=== PATIENT | female | born 1955 | race Caucasian/White ===

== ENCOUNTER 2019-12-30 11:34 | Outpatient (CLI) | payer MEDICARE, SELFPAY ==
--- NOTE | 2019-12-30 11:50 | XR_ITS ---
WS: [id number] LEFT KNEE: 3 VIEW(S) TECHNIQUE: AP, oblique(s) and lateral. HISTORY: LEFT knee pain. COMPARISON: None available. Curvilinear osseous density adjacent to the medial femoral condyle. Typically seen with avulsion inju ry of the femoral condyle from an MCL injury. Mild narrowing of all 3 compartments. Small osteophytes from the medial tibial plateau and femoral co ndyle. No joint effusion. No soft tissue abnormality. XR/XR knee LT 3V* [id number] IMPRESSION: 1. Mild tricompartment osteoarthritis. 2. Avulsion fracture from the medial femoral condyle. Probably from a prior MC L injury.
== END 2019-12-30 11:35 | disposition home or self-care (01) ==
LOC: RADWPI 11:43
PROVIDERS: PCP Internal Medicine; Visit Provider Nurse Practitioner Family
DX: M25.562 Pain in left knee (principal); M17.12 Unilateral primary osteoarthritis, left knee; S72.432A Displaced fracture of medial condyle of left femur, initial encounter for closed fracture; X58.XXXA Exposure to other specified factors, initial encounter
CPT/HCPCS: 73562

== ENCOUNTER 2020-01-08 06:00 | Outpatient (RCR) | payer MEDICARE, SELFPAY | END 2020-01-25 23:59 | disposition home or self-care (01) | LOC: TPT 06:00 | PROVIDERS: PCP Internal Medicine; Referring Provider Orthopaedic Surgery; Visit Provider Orthopaedic Surgery | DX: M17.12 Unilateral primary osteoarthritis, left knee (principal) | CPT/HCPCS: 97110; 97162 ==

== ENCOUNTER 2020-01-26 06:00 | Outpatient (RCR) | payer MEDICARE, SELFPAY | END 2020-02-24 23:59 | disposition home or self-care (01) | LOC: TPT 06:00 | PROVIDERS: PCP Internal Medicine; Visit Provider Orthopaedic Surgery | DX: M17.12 Unilateral primary osteoarthritis, left knee (principal) | CPT/HCPCS: 97110 ==

== ENCOUNTER 2020-07-14 06:00 | Outpatient (RCR) | payer MEDICARE, SELFPAY | END 2020-07-26 23:59 | disposition home or self-care (01) | LOC: TPT 06:00 | PROVIDERS: PCP Internal Medicine; Referring Provider Nurse Practitioner Family; Visit Provider Nurse Practitioner Family | DX: M17.12 Unilateral primary osteoarthritis, left knee (principal) | CPT/HCPCS: 97161 ==

== ENCOUNTER 2020-07-27 06:00 | Outpatient (RCR) | payer MEDICARE, SELFPAY | END 2020-08-26 23:59 | disposition home or self-care (01) | LOC: TPT 06:00 | PROVIDERS: PCP Internal Medicine; Referring Provider Nurse Practitioner Family; Visit Provider Nurse Practitioner Family | DX: M25.511 Pain in right shoulder (principal) | CPT/HCPCS: 97110 ==

== ENCOUNTER 2020-10-19 19:13 | Emergency (ER) | payer MEDICARE, SELFPAY ==
[2020-10-19 19:19] VITALS: BP 172/99; PULSE 90; RESP 18; TEMP 36.6; O2SAT 97; BMI 34.7
[2020-10-19 19:56] VITALS: BP 191/89; PULSE 74; RESP 16; O2SAT 98
[2020-10-19] MEDS: cloNIDine 0.1 mg Tablet 0.2 MG PO (20:03)
--- NOTE | 2020-10-19 20:05 | CTR_ITS ---
PROCEDURE INFORMATION: Exam: CT Head Without Contrast Exam date and time: 10/19/2020 8:06 PM Age: 65 years old Clinical indication: Dizziness and other: Hypertension; Additional info: Headache TECHNIQUE: Imaging protocol: Computed tomography of the head without contrast. Radiation optimization: All CT scans at this facility use at least one of these dose optimization techniques: automated exposure control; mA and/or kV adjustment per patient size (includes targeted exams where dose is matched to clinical indication); or iterative reconstruction. COMPARISON: No relevant prior studies available. RADIATION DOSE METRICS: Total DLP (mGy-cm): 782.83 FINDINGS: Brain: Normal. No hemorrhage. Unremarkable white matter. No mass effect. Cerebral ventricles: No ventriculomegaly. Bones/joints: Unremarkable. No acute fracture. Paranasal sinuses: Visualized sinuses are unremarkable. No fluid levels. Mastoid air cells: Visualized mastoid air cells are well aerated. Soft tissues: Unremarkable. CT/CT head wo con* [id number] IMPRESSION: No acute intracranial abnormality. Radiation Dose CTDIVOL = (mGy): DLP = 782.83 (mGy-cm)
--- NOTE | 2020-10-19 20:05 | ECG_ITS ---
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
--- NOTE | 2020-10-19 20:09 | ED_ITS ---
HPI - General Adult General: Chief complaint: General Medical Stated complaint: elevated blood pressure Time Seen by Provider: 10/19/20 19:40 History of Present Illness: HPI narrative: The patient is a 65-year-old female with past medical history headaches who comes to the ER complaining of elevated blood pressure and headache and tingling in her scalp. She says she had a headache earlier today and got an adjustment from a DO physician this morning and it relieved her headache. The headache returned and she had tingling and checked her blood pressure at home and it was 140 systolic. When she checked it again it was 170 systolic and she comes to the ER for evaluation. She periodically is on and off of 2-1/2 mg of lisinopril. She has been taking it daily for the past 2 weeks and she says usually when she gets hypertensive that is enough to keep her blood pressure down. Normal blood pressure for her is less than 120 systolic at home so she is worried about the elevation. Onset (ago): hour(s) (6) Location: head Severity: mild Relieving factors: none Exacerbating factors: none Associated symptoms: Reports no associated symptoms and headache(s); Deny chest pain, confusion, dyspnea, rash or palpitations Review of Systems General: Reports: 10 or more systems reviewed and unremarkable except in HPI and below Const: Denies: fatigue Eyes: Denies: change in vision, blurry vision or eye redness ENMT: Denies: throat pain, swelling of lips/tongue, ear or mastoid pain or nasal congestion Card: Denies: chest pain, palpitations, irregular heart rhythm, edema, dyspnea on exertion or orthopnea Resp: Denies: dyspnea, productive cough or non-productive cough GI: Denies: abdominal pain, diarrhea or GI cramping : Denies: flank pain, difficulty voiding, urinary frequency or urinary urgency Musc: Denies: neck pain, back pain, extremity pain, joint pain, joint redness, limited range of motion or muscle weakness Skin/Breast: Denies: rash, pruritus, erythema, skin pain or skin tenderness Neuro: Reports: headache(s); Denies: numbness in extremities, weakness in extremities, sensory changes, difficulty walking, dizziness, confusion or Slurred speech present Psych: Denies: anxiety or depression Endo: Denies: polyuria All/Imm: Denies: urticaria, throat swelling or tongue swelling PFSH ED PFSH: Social History Smoking and tobacco status: never smoked Alcohol intake: never Physical Exam Const: COMMON NORMALS: no acute distress, average body habitus, patient o riented x3, no limitations, healthy appearing, alert and well nourished GENERAL APPEARANCE: cooperative, comfortable, well kempt and well developed ORIENTATION/CONSCIOUSNESS: Yes awake, Yes oriented to person, Yes oriented to place and Yes oriented to time HENMT: COMMON NORMALS: normocephalic, external ears normal and Normal external nose present HEAD & SCALP: normal to inspection and normocephalic NOSE: Normal external nose present EXTERNAL EAR: Yes external ears normal MOUTH: Normal oral and palatal mucosa present THROAT: posterior oropharynx normal Eye: COMMON NORMALS: Equal, round and reactive pupils present and EOMs intact bilaterally GENERAL EYE: appearance normal, both eyes and all related structures PUPIL: Yes Equal, round and reactive pupils present Neck/C-Spine: COMMON NORMALS: full ROM, no lymphadenopathy, no meningeal signs and no JVD GENERAL: Yes normal visual inspection Lymph: LYMPHATIC: no lymphadenopathy noted Chest: COMMONS NORMALS: normal inspection of the chest and normal palpation of entire chest wall Resp: COMMON NORMALS: normal respiratory effort, No retractions, No use of accessory muscles, clear to auscultation bilaterally and percussion normal EFFORT & INSPECTION: Yes able to speak in complete sentences AUSCULTATION: clear to auscultation bilaterally PERCUSSION: percussion normal Cardio: COMMON NORMALS: no JVD, regular rate, regular rhythm, S1 normal heart sound present, S2 normal heart sound present and Peripheral pulses 2+ throughout RATE: regular rate RHYTHM: regular rhythm HEART SOUNDS: S1 normal heart sound present and S2 normal heart sound present PERIPHERAL PULSES: Peripheral pulses 2+ throughout GI: COMMON NORMALS: Normal to inspection, nondistended, normoactive bowel sounds present, Soft to palpation, non-tender and no masses INSPECTION: Yes normal to inspection PALPATION: Yes Soft to palpation : COMMON NORMALS: Yes no CVA tenderness BLADDER/KIDNEY EXAM: Yes no CVA tenderness Back/Pelvis: COMMON NORMALS: no CVA tenderness, thoracic and lumbar spine normal to inspection, no thoracic nor lumbar tenderness and thoraco-lumbar ROM normal Extremity: COMMON NORMALS: normal to inspection, full ROM, capillary refill normal, no joint enlargement and no pedal edema GENERAL: Yes normal exam except as noted Neuro: COMMON NORMALS: patient oriented x3, CN's II-XII intact bilaterally, moves all extremities, no focal motor deficits, no sensory deficits noted and gait normal SENSORIUM/ORIENTATION: Yes alert, Yes oriented to person, Yes oriented to place and Yes oriented to time MENINGEAL SIGNS: Yes no meningeal signs Psych: COMMON NORMALS: mental status grossly normal, Normal thought process present, cooperative, normal affect and speech normal APPEARANCE: Yes well kempt ATTITUDE: Yes calm SPEECH: Yes normal speech THOUGHT PROCESS: Normal thought process present Skin: COMMON NORMALS: no rashes or lesions noted GENERAL SKIN EXAM: no rashes or lesions noted Course Vital Signs: Vital signs: Vital Signs Temperature 97.8 F 10/19/20 19:19 Pulse Rate 74 10/19/20 19:56 Respiratory Rate 16 10/19/20 19:56 Blood Pressure 134/71 10/19/20 21:36 Pulse Oximetry 94 10/19/20 21:36 MDM - General Adult MDM Narrative: Medical decision making narrative: Patient came in with a headache and high blood pressure. Imaging and blood work are normal. She was given 0.2 clonidine which reduced her blood pressure with good effect. At home she has normal blood pressure in the systolic 120s however occasionally it goes up to the 160s. I prescribed her a short course of as needed clonidine to help with this and she is to discuss it with her primary care physician in a few days to see if she likes this medicine and it is appropriate for her. Continue taking the lisinopril as she is. Lab Data: Labs: Lab Results 10/19/20 10/19/20 10/19/20 Range/Units 20:40 20:40 20:40 WBC 9.2 (4.0-10.0) 10^3/ uL RBC 4.92 (4.1-5.3) 10^6/u L Hgb 14.4 (11.5-15.3) g/dL Hct 43.4 (37.0-47.0) % MCV 88.2 (81-99) fL MCH 29.3 (28.0-34.0) pg MCHC 33.2 (30.0-36.0) g/dL RDW 12.6 (12.1-15.1) % Plt Count 214 (130-400) 10^3/c mm MPV 10.9 H (7.4-10.4) fL Neut % (Auto) 70.9 % Lymph % (Auto) 22.0 % Grand % (Auto) 6.0 % Eos % (Auto) 0.7 % Baso % (Auto) 0.3 % Neut # (Auto) 6.51 (1.8-7.7) 10^3/u L Lymph # (Auto) 2.0 (0.8-4.8) 10^3/u L Grand # (Auto) 0.6 (0.2-0.9) 10^3/u L Eos # (Auto) 0.1 (0.0-0.8) 10^3/u L Baso # (Auto) 0.0 (0.0-0.1) 10^3/u L Nucleated RBC % (a uto) 0 % Nucleated RBCs # 0.0 /100WBC Sodium 142 (136-145) mmol/L Potassium 4.1 (3.5-5.1) mmol/L Chloride 103 (98-107) mmol/L Carbon Dioxide 25 (22-29) mmol/L Anion Gap 18.1 (5-19) BUN 19 (8-23) mg/dL Creatinine 0.5 (0.5-0.9) mg/dL GFR Calculation 123.1 (90-130) mL/min Glucose 94 (65-115) mg/dL Calculated Osmolal ity 296 H (285-295) mOsm/k g Calcium 9.7 (8.5-10.5) mg/dL Total Bilirubin 0.2 (0.15-1.2) mg/dL AST 18 (0-32) U/L ALT 21 (0-33) U/L Alkaline Phosphata se 66 (35-105) IU/L Troponin T Baselin e 8 (0-10) ng/L Total Protein 6.5 L (6.6-8.7) g/dL Albumin 4.2 (3.5-5.2) g/dL Globulin 2.3 (1.3-4.6) g/dL Discharge Plan Discharge Patient Disposition: Home Clinical Impression: Hypertension, Headache Condition: Stable Prescriptions: New clonidine HCl 0.2 mg tablet 0.1 mg PO Q6H PRN (Reason: blood pressure greater than 160) 1 Days Qty: 6 RF: 0 No Action acetaminophen [Tylenol] 325 mg capsule 325 mg PO QID PRN (Reason: pain/headache) RF: 0 aspirin 81 mg tablet,delayed release (DR/EC) 81 mg PO DAILY@0900 RF: 0 magnesium 250 mg tablet 500 mg PO DAILY@0900 RF: 0 ascorbic acid (vitamin C) 500 mg tablet 500 mg PO DAILY@0900 RF: 0 vitamin E 200 unit Capsule 200 unit PO DAILY@0900 RF: 0 aspirin 325 mg Tablet 325 mg PO Q4H PRN (Reason: pain/headache) RF: 0 lisinopril 5 mg tablet 5 mg PO DAILY@0900 RF: 0 Excedrin Migraine 250-250-65 mg Tablet 1 tab PO Q6H PRN (Reason: Headache) RF: 0 melatonin 5 mg Tablet 5 mg PO BEDTIME RF: 0 Vitamin D3 125 mcg (5,000 unit) Tablet 125 mcg PO DAILY@0900 RF: 0 Mucinex 600 mg Tablet Extended Release 12hr 600 mg PO Q12H PRN (Reason: unknown) RF: 0 biotin 5,000 mcg Tablet,Disintegrating 5,000 mcg PO DAILY@0900 RF: 0 potassium 99 mg PO DAILY@0900 RF: 0 zinc 1 tab PO DAILY@0900 RF: 0 Discharge Orders: Discharge ED (Routine); Ordered 10/19/20 Ordered By: Collins Flores Referrals: Ml England, DO [Primary Care Provider] - Discharge Diet: Advance as tolerated Discharge Activity: Resume usual activity Patient Instructions: Hypertension (ED), Opioid Safety Activity Restrictions/Additional Instructions: You are suffering from high blood pressure. Please take the clonidine as needed to help with blood pressure is 160 or greater. Try other techniques such as relaxation to help with your blood pressure as well. Please talk to your primary care physician in a few days to discuss this further and possibly get a refill for this medication if it is working for you. Return to the ER with worsening symptoms Coding Level of Care Code ED Finishing Machine Operator Automatic for Subha Fwjeromy Exam Comprehensive
[2020-10-19 20:57] LABS: Basophils % 0.3 %; Eosinophils # 0.1 10^3/uL (0.0-0.8); Eosinophils % 0.7 %; Hematocrit 43.4 % (37.0-47.0); Hemoglobin 14.4 g/dL (11.5-15.3); Mean Corpuscular HGB Conc 33.2 g/dL (30.0-36.0); Mean Corpuscular Hemoglobin 29.3 pg (28.0-34.0); Mean Corpuscular Volume 88.2 fL (81-99); Mean Platelet Volume 10.9 fL (7.4-10.4); Monocytes # 0.6 10^3/uL (0.2-0.9); Neutrophils # 6.51 10^3/uL (1.8-7.7); Neutrophils % 70.9 %; Nucleated Red Blood Cells % 0 %; Platelet Count 214 10^3/cmm (130-400); Red Blood Count 4.92 10^6/uL (4.1-5.3); Red Cell Distribution Width 12.6 % (12.1-15.1); White Blood Count 9.2 10^3/uL (4.0-10.0)
[2020-10-19 21:36] VITALS: BP 134/71; O2SAT 94
[2020-10-19 21:51] LABS: Alanine Aminotransferase 21 U/L (0-33); Albumin Level 4.2 g/dL (3.5-5.2); Alkaline Phosphatase 66 IU/L (35-105); Anion Gap 18.1 (5-19); Aspartate Amino Transferase 18 U/L (0-32); Blood Urea Nitrogen 19 mg/dL (8-23); Calcium 9.7 mg/dL (8.5-10.5); Carbon Dioxide 25 mmol/L (22-29); Chloride 103 mmol/L (98-107); Globulin 2.3 g/dL (1.3-4.6); Glomerular Filtration Rate 123.1 mL/min (90-130); Glucose 94 mg/dL (65-115); Osmolality Calculated 296 mOsm/kg (285-295); Potassium 4.1 mmol/L (3.5-5.1); Sodium 142 mmol/L (136-145); Total Bilirubin 0.2 mg/dL (0.15-1.2); Total Protein 6.5 g/dL (6.6-8.7)
[2020-10-19 21:53] LABS: Troponin(5th) Baseline 8 ng/L (0-10)
[2020-10-19 22:21] VITALS: BP 128/69; PULSE 73; RESP 16; O2SAT 95
== END 2020-10-19 22:22 | disposition home or self-care (01) ==
PROVIDERS: Emergency Provider Family Medicine; PCP Internal Medicine
DX: I10 Essential (primary) hypertension (principal); R51.9 Headache, unspecified; Z79.82 Long term (current) use of aspirin
CPT/HCPCS: 70450; 80053; 84484; 85025; 93005; 99283